=== PATIENT | female | born 1945 | race Native Hawaiian/Other Pacific Islander ===

== ENCOUNTER 2018-01-09 06:46 | Day surgery (SDC) | payer OTHER ==
[2018-01-09 07:13] VITALS: O2SAT 100
[2018-01-09] MEDS ORDERED: Propofol 10 mg/ml Inj (20 ML) ONE ×2 (08:13→08:38)
[2018-01-09] MEDS ORDERED: Lidocaine Hydrochloride 5 ML INJ ONE (08:13)
--- NOTE | 2018-01-09 08:22 | CP.SDSHP ---
Same Day Surgery H & P - History Proposed Procedure: EGD Pre-Op Diagnosis: Dyspepsia - Previous Medical/Surgical History Cardiac: Hypertension Pulmonary: Asthma Endocrine/Metabolic: Diabetes Previous Surgical History: Breast cyst - Allergies Allergies: Allergies levofloxacin [From Levaquin] Allergy (Mild, Verified 01/06/18 11:18) RASH - Current Medications Current Medications: See reconciliation sheet - Physical Exam General Appearance: WD WN female in NAD Vital Signs: Vital Signs 01/09/18 01/09/18 07:04 08:08 Temperature 97.8 F 97.8 F Pulse Rate 80 80 Respiratory 20 20 Rate Blood Pressure 149/74 149/74 O2 Sat by Pulse 100 100 Oximetry Mental Status: Alert & Oriented x3 Neuro: WNL Heart: WNL Lungs: WNL GI: WNL - {Optional Preform as Required} Abdomen: WNL - Impression Impression: Dyspepsia Pt. Evaluated Today:Candidate for Anesthesia & Procedure: Yes - Date & Time Date: 01/09/18 Time: 08:22 Short Stay Discharge - Short Stay Discharge Admitting Diagnosis/Reason for Visit: DYSPEPSIA Disposition: HOME/ ROUTINE
[2018-01-09 09:00] VITALS: TEMP 97.7
[2018-01-09 09:43] VITALS: BP 132/76; PULSE 71; RESP 18
== END 2018-01-09 09:37 | disposition home or self-care (01) ==
LOC: C.ENDO 06:46
PROVIDERS: ATTEND Internal Medicine Gastroenterology
DX: K31.7 Polyp of stomach and duodenum (principal); K57.10 Diverticulosis of small intestine without perforation or abscess without bleeding; K29.50 Unspecified chronic gastritis without bleeding; I10 Essential (primary) hypertension; J45.909 Unspecified asthma, uncomplicated; E11.9 Type 2 diabetes mellitus without complications
CPT/HCPCS: 43239; 82948; 88305; 88312; 88313; 88342; J2704

== ENCOUNTER 2018-01-26 12:15 | Emergency (ER) | payer OTHER ==
[2018-01-26 12:31] VITALS: TEMP 97.6; O2SAT 98; BMI 24.1
[2018-01-26 13:41] LABS: BASO % 0.8 % (0.0-2.0); EOS # 0.1 K/uL (0.0-0.7); EOS % 1.6 % (0.0-4.0); HEMOGLOBIN 13.8 g/dL (11.0-16.0); LYMPH # 1.2 K/uL (1.0-4.3); MEAN CELL VOLUME 88.5 fL (81.0-99.0); MEAN CORPUSCULAR HEMOGLOBIN 30.2 pg (27.0-31.0); MEAN CORPUSCULAR HGB CONC 34.1 g/dL (33.0-37.0); MEAN PLATELET VOLUME 8.3 fL (7.2-11.7); MONO # 0.6 K/uL (0.0-0.8); MONO % 11.2 % (0.0-10.0); NEUT # 3.6 K/uL (1.8-7.0); NEUT % 64.4 % (50.0-75.0); RBC 4.57 Mil/uL (3.80-5.20); RED CELL DISTRIBUTION WIDTH 13.2 % (11.5-14.5); WHITE BLOOD COUNT 5.5 K/uL (4.8-10.8)
[2018-01-26 14:00] LABS: ALB/GLOB RATIO 1.2 (1.0-2.1); ALBUMIN 4.5 g/dL (3.5-5.0); ALT/SGPT 28 U/L (9-52); AST/SGOT 27 U/L (14-36); BLOOD UREA NITROGEN 11 mg/dL (7-17); CALCIUM 9.8 mg/dl (8.6-10.4); GFR NON-AFRICAN AMERICAN > 60
--- NOTE | 2018-01-26 14:10 | RAD ---
Date of service: 01/26/2018 HISTORY: palpitations COMPARISON: 10/21/2015 FINDINGS: LUNGS: No active pulmonary disease. PLEURA: No significant pleural effusion identified, no pneumothorax apparent. CARDIOVASCULAR: No atherosclerotic calcification present No radiographic findings to suggest acute or significant cardiovascular disease. OSSEOUS STRUCTURES: No significant abnormalities. VISUALIZED UPPER ABDOMEN: Normal. OTHER FINDINGS: None. IMPRESSION: No active disease. No significant interval change compared to the prior examination(s).
--- NOTE | 2018-01-26 14:33 | C.PDOC ---
History Of Present Illness Patient reports that three days ago while eating lunch she developed palpitations. She went to her PMD later that day and EKG showed new onset afib, rate controlled. She was prescribed Eliquis and told to follow up the next day. During the next PMD visit repeat EKG showed sinus rhythm. She was told to continue Eliquis and follow up again in a week. Today she developed palpitations again, and BP checked at home was 177 systolic. She denies chest pain, dyspnea, nausea, dizziness. Palpitations have since improved. Time Seen by Provider: 01/26/18 12:59 Chief Complaint (Nursing): Palpitations Past Medical History Vital Signs: Last Vital Signs Temp 97.6 F 01/26/18 12:25 Pulse 107 H 01/26/18 12:53 Resp 17 01/26/18 12:25 BP 168/82 H 01/26/18 12:25 Pulse Ox 98 01/26/18 12:25 - Medical History PMH: Arthritis (RIGHT KNEE), Asthma, Atrial Fibrillation, Colonic Polyps, HTN, Hypercholesterolemia Denies: Bronchitis, COPD, Emphysema, Fractures, Chronic Kidney Disease, Seizures, Sleep Apnea, TIA Surgical History: Denies: Endoscopy Family History: States: Unknown Family Hx - Social History Hx Tobacco Use: No Hx Alcohol Use: No Hx Substance Use: No - Immunization History Hx Tetanus Toxoid Vaccination: Yes Hx Influenza Vaccination: Yes Hx Pneumococcal Vaccination: No Review Of Systems Except As Marked, All Systems Reviewed And Found Negative. Constitutional: Negative for: Fever, Chills Cardiovascular: Positive for: Palpitations. Negative for: Chest Pain, Edema, Light Headedness Respiratory: Negative for: Cough, Shortness of Breath Gastrointestinal: Negative for: Nausea, Vomiting, Abdominal Pain, Diarrhea Genitourinary: Negative for: Dysuria Neurological: Negative for: Weakness Physical Exam - Physical Exam Appears: Well, Non-toxic, No Acute Distress Skin: Normal Color, Warm, Dry Head: Atraumatic Eye(s): bilateral: Normal Inspection Oral Mucosa: Moist Chest: Symmetrical Cardiovascular: Rhythm Regular Respiratory: Normal Breath Sounds Gastrointestinal/Abdominal: Normal Exam Neurological/Psych: Oriented x3, Normal Speech ED Course And Treatment - Laboratory Results Result Diagrams: 01/26/18 13:37 01/26/18 13:37 ECG: Interpreted By Me ECG Rhythm: Sinus Tachycardia Interpretation Of ECG: normal axis, normal intervals, no ST/T changes Rate From EC O2 Sat by Pulse Oximetry: 98 - Radiology CXR: Read By Radiologist CXR Interpretation: Yes: No Acute Disease Medical Decision Making Medical Decision Making: Patient with no complaints throughout ED course. On re-eval patient still in sinus rhythm, rate 68. Lab results discussed. Advised outpatient followup as scheduled. Disposition - Disposition Disposition: HOME/ ROUTINE Disposition Time: 14:30 Condition: GOOD Additional Instructions: MARIO WINSTON, thank you for letting us take care of you today. Your provider was Caroline Singh MD and you were treated for PALPITATIONS,HIGH BP. The emergency medical care you received today was directed at your acute symptoms. If you were prescribed any medication, please fill it and take as directed. It may take several days for your symptoms to resolve. Return to the Emergency Department if your symptoms worsen, do not improve, or if you have any other problems. Please contact your doctor or call one of the physicians/clinics you have been referred to that are listed on the Patient Visit Information form that is included in your discharge packet. Bring any paperwork you were given at discharge with you along with any medications you are taking to your follow up visit. Our treatment cannot replace ongoing medical care by a primary care provider outside of the emergency department. Thank you for allowing the [facility] team to be part of your care today. If you had an X-Ray or CT scan: A Radiologist will review the ED reading if any change in treatment is needed we will contact you. If you had a blood, urine, or wound culture: It will take several days for the results, if any change in treatment is needed we will contact you. If you had an STI test: It will take 48 hours for the results. Please call after 1 week if you have not heard back. Instructions: Palpitations (DC) Forms: [employer] (Swedish) - Clinical Impression Clinical Impression: Palpitations
[2018-01-26 14:54] VITALS: BP 130/71; PULSE 71; RESP 13
--- NOTE | 2018-01-27 17:43 | CARD ---
APPROVED REPORT Date of service: 01/26/2018 EKG Measurement Heart [id number] <Conclusion> Sinus tachycardia Junctional ST depression, probably normal Borderline ECG
== END 2018-01-26 15:02 | disposition home or self-care (01) ==
LOC: C.ER 12:15
DX: R00.2 Palpitations (principal); I10 Essential (primary) hypertension; E78.00 Pure hypercholesterolemia, unspecified; Z79.01 Long term (current) use of anticoagulants